=== PATIENT | male | born 1940 | race Caucasian/White ===

== ENCOUNTER 2016-06-29 18:18 | Emergency (ER) | payer OTHER ==
[2016-06-29 18:26] VITALS: TEMP 97.7
--- NOTE | 2016-06-29 18:49 | CPEKG ---
Heart Rate: 64 RR Interval: 938 P-R Interval: 168 QRSD Interval: 90 QT Interval: 380 QTC Interval: 392 P [place]: 73 QRS [place]: 88 T Wave [place]: 81 EKG Severity - OTHERWISE NORMAL ECG - EKG Impression: SINUS RHYTHM EKG Impression: BORDERLINE RIGHT AXIS DEVIATION Electronically Signed By: Rachael Altamirano 01-Jul-2016 13:49:36
--- NOTE | 2016-06-29 18:52 | EDPHY ---
H & P Stated Complaint: dizzy/room spinning/off balance/nausea Time Seen by Provider: 06/29/16 19:21 HPI/ROS: CHIEF COMPLAINT: Dizziness HISTORY OF PRESENT ILLNESS: This patient is a 75 year old male who presents to the Emergency Department complaining of acute onset room-spinning dizziness with associated nausea at 1300 today. He states that the spinning sensation and nausea lasted for approximately 2-3 seconds before subsiding. Following the episode, he experienced generalized weakness that has persisted to the present. When he is upright the spinning returns. He denies headache, decreased hearing, earache, difficulty speaking, vision or hearing changes, paresthesias, or focal weakness. No recent head trauma. No recent cough, cold, or fever. He does report one prior episode of similar dizziness many years ago. He denies any additional pertinent medical history. REVIEW OF SYSTEMS: A ten point review of systems was performed and is negative with the exception of the items mentioned in the HPI. Source: Patient - Personal History Current Tetanus/Diphtheria Vaccine: Yes - Medical/Surgical History PMH: Denies. Hx Asthma: No Hx Chronic Respiratory Disease: No Hx Diabetes: No Hx Cardiac Disease: No Hx Renal Disease: No Hx Cirrhosis: No Hx Alcoholism: No Hx HIV/AIDS: No Hx Splenectomy or Spleen Trauma: No Other PMH: denies - Social History Smoking Status: Never smoked Additional Social History: Friend at bedside. No alcohol use. Non-smoker. 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 Lives alone. - Physical Exam Exam: General Appearance: Alert. Visibly uncomfortable. Vital signs reviewed. Blood pressure 137/80. Head: Normocephalic atraumatic. Eyes: Pupils equal and round, no conjunctival injection, no discharge. Anicteric. ENT, Mouth: Mucous membranes are moist, no oropharyngeal erythema or edema. Neck: No lymphadenopathy, supple. No carotid bruits. Respiratory: Lungs are clear to auscultation; no wheezes, rales, or rhonchi. Cardiovascular: Regular rate and rhythm; no murmur, rub, or gallop. Gastrointestinal: Abdomen is soft and nontender, no masses or organomegaly, bowel sounds normal. Skin: Warm and dry, no rashes on exposed skin, normal color. Back: Nontender to palpation over the thoracolumbar spine. No CVAT. Extremities: No lower extremity edema, no calf tenderness or swelling. Neurological: Alert and oriented. Moving all four extremities easily and equally. Cranial nerves II through XII are examined and are intact (visual acuity not tested). Strength is 5 over 5 bilaterally with testing of all major motor groups. Sensation is intact to light touch over all 4 extremities. Deep tendon reflexes are 2+ in the biceps and knees bilaterally. [id number] is performed accurately. Psychiatric: Normal affect. Constitutional: Initial Vital Signs Temperature (C) 36.5 C 06/29/16 18:24 Heart Rate 67 06/29/16 18:24 Respiratory Rate 20 06/29/16 18:24 Blood Pressure 137/80 H 06/29/16 18:24 O2 Sat (%) 100 06/29/16 18:24 O2 Delivery Mode Room Air Allergies/Adverse Reactions: No Known Allergies Allergy (Unverified 06/29/16 18:23) Home Medications: Medication Instructions Recorded Meclizine HCl [Meclizine HCl 25 mg 25 mg PO Q8 PRN #10 tab 06/29/16 (RX,OTC)] Medical Decision Making - Diagnostics EKG Interpretation: The 12 lead EKG was interpreted by myself: Sinus rhythm, rate 64; borderline right axis deviation. See hard copy and/or "tracemaster" electronic copy for interpretation. Imaging Results: CT of the head reviewed by me in PACs. There is no acute hemorrhage. Imaging: Discussed imaging studies w/ inbound call center representative Radiologist (2003, normal) ED Course/Re-evaluation: This otherwise healthy 75-year-old male presents with complaint of generalized weakness following a 2-3 second episode of room spinning dizziness and nausea. His friend reports that he has had an unstable gait since that time. On exam, he appears uncomfortable and unsteady with movement. Will proceed with CT of the head to evaluate central causes for vertigo. Will also obtain labs and EKG. Labs reviewed and are unremarkable. Chemistries are within normal ranges. No indication of acute blood loss in history or physical. 1933: 2.5mg IV Diazepam administered. 2004: CT of the head is normal per radiologist. 2010: I discussed labs and imaging results with the patient, who is relieved. He continues to report mild dizziness and nausea with movement, especially when attempting to sit up, consistent with vertigo. Symptoms were not relieved following administration of diazepam. 2019: 25mg PO Meclizine administered. 2039: On reevaluation, the patient continues to complain of vertigo-like symptoms. Given that he lives alone and his dizziness has remained intractable while in the ED, will plan for admission. 2043: Consultation with Dr. Chelsie Schmid, hospitalist, who accepts admission. 2053: At time of Dr. Schmid's evaluation, the patient reports significant improvement to his symptoms and asks to go home.. I reexamined him and he is able to move about his room without recurrence of vertigo. I will provide him with a script for Meclizine and follow-up instructions. He will be discharged home in good condition. Differential Diagnosis: Dizziness including but not limited to peripheral and central causes of vertigo , orthostatic causes including dehydration, and blood loss. - Data Points Laboratory Results: Laboratory Results 06/29/16 18:45 06/29/16 18:45 Medications Given: Discontinued Medications Diazepam (Valium Injection) 2.5 mg IVP EDNOW ONE Stop: 06/29/16 19:33 Last Admin: 06/29/16 19:56 Dose: 2.5 mg Meclizine HCl (Meclizine Hcl) 25 mg PO EDNOW ONE Stop: 06/29/16 20:20 Last Admin: 06/29/16 20:29 Dose: 25 mg Departure - Departure Disposition: Home, Routine, Self-Care Clinical Impression: Vertigo Condition: Good Instructions: Meclizine (By mouth), Vertigo (ED) Additional Instructions: 1. Take 25mg Meclizine every 4-6 hours as needed for symptoms of vertigo ( feeling dizzy and nauseated). 2. Follow-up with an Ear, Nose, and Throat Specialist if you continue to experience symptoms of vertigo for further evaluation. We have referred you to our on-call provider, Dr. Belcher. 3. Return to the Emergency Department if you experience severe headache, increased dizziness or nausea that is not improved with use of Meclizine, confusion, weakness, numbness, vision or speech changes, or for other serious concerns. Referrals: Cindy Belcher MD [Medical Doctor] - As per Instructions Prescriptions: Meclizine HCl [Meclizine HCl 25 mg (RX,OTC)] 25 mg PO Q8 PRN #10 tab PRN Reason: vertigo, dizziness Report Scribed for: Janae Pelletier Report Scribed by: Virginia Quiros Date of Report: 06/29/16 Time of Report: 19:06 Physician Review and Approval Statement: 06/29/16 18:51 Portions of this note were transcribed by the medical information specialist. I, Dr. Janae Pelletier, personally performed the history, physical exam, and medical decision- making; and confirmed the accuracy of the information in the transcribed note.
[2016-06-29] MEDS ORDERED: DIAZEPAM 10 MG/2 ML SYR IVP ONE (19:32)
[2016-06-29 19:37] LABS: % IMMATURE GRANULYOCYTES 0.3 % (0.0-1.1); ABSOLUTE IMMATURE GRANULOCYTES 0.02 10^3/uL (0.00-0.10); ADD DIFF? NO; ADD MORPH? NO; ADD SCAN? NO; ATYPICAL LYMPHOCYTE FLAG 0 (0-99); FRAGMENT RBC FLAG 0 (0-99); HEMATOCRIT 39.2 % (40.0-51.0); HEMOGLOBIN 13.3 g/dL (13.7-17.5); LEFT SHIFT FLG 0 (0-99); LIPEMIA HEMOLYSIS FLAG 90 (0-99); MEAN CELL HEMOGLOBIN 31.7 pg (27.9-34.1); MEAN CELL HEMOGLOBIN CONCENTR. 33.9 g/dL (32.4-36.7); MEAN CELL VOLUME 93.3 fL (81.5-99.8); MEAN PLATELET VOLUME 10.6 fL (8.7-11.7); PLATELET CLUMPS FLAG 10 (0-99); PLATELET COUNT 204 10^3/uL (150-400); RED CELL DISTRIBUTION WIDTH 12.6 % (11.5-15.2)
[2016-06-29 19:43] LABS: ANION GAP 10 mEq/L (8-16); CALCIUM 9.3 mg/dL (8.5-10.4); CARBON DIOXIDE 26 mEq/l (22-31); CHLORIDE 98 mEq/L (97-110); CREATININE 0.9 mg/dL (0.7-1.3); GLOMERULAR FILTRATION RATE > 60; GLUCOSE 143 mg/dL (70-100); POTASSIUM 3.9 mEq/L (3.5-5.2); SODIUM 134 mEq/L (134-144)
[2016-06-29] MEDS ORDERED: MECLIZINE HCL 25 MG TAB PO ONE (20:19)
[2016-06-29] MEDS ORDERED: MECLIZINE HCL 25 MG TAB ONE (21:11)
[2016-06-29 21:23] VITALS: BP 138/84; PULSE 70; RESP 12; O2SAT 99
== END 2016-06-29 21:23 | disposition home or self-care (01) ==
LOC: UNDOADMOB 20:48
DX: R42 Dizziness and giddiness (principal)
CPT/HCPCS: 96374